=== PATIENT | male | born 1965 | race Caucasian/White ===

== ENCOUNTER 2023-04-24 10:16 | Outpatient (REF) | payer BC, SELFPAY ==
--- NOTE | ~2023-04-24 | XR_ITS ---
EXAMINATION: XR KNEE, LEFT CLINICAL INFORMATION: Pain in left knee COMPARISON: None available. TECHNIQUE: 3 views of the left knee. FINDINGS: No fracture or joint effusion. Alignment is anatomic. Moderate narrowing of the medial joint compartment with associated marginal osteophytes. Small marginal osteophytes involving the patellofemoral joint. No abnormal soft tissue calcification. XR/XR knee LT 3V IMPRESSION: Moderate osteoarthritis involving the medial joint compartment.
== END 2023-04-24 10:17 | disposition home or self-care (01) ==
LOC: HO.HOSX 10:16
PROVIDERS: Visit Provider Orthopaedic Surgery
DX: M17.12 Unilateral primary osteoarthritis, left knee (principal)
CPT/HCPCS: 73562

== ENCOUNTER 2023-04-24 10:44 | Outpatient (AMB) | payer BC, SELFPAY ==
--- NOTE | 2023-04-24 10:51 | A.OFFVIS_ITS ---
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 States pain started about 5 yrs ago and has worsen since. Pain is located mainly by his medial aspect. Describes pain as burning pain in knee. States knee gives out when walking but is not often. Patient wears a knee brace for support. Patient reports he doesn't have a PCP at the moment. The patient has had multiple cortisone injections in the past. The most recent injection gave him minimal relief. He has also done physical therapy for 12 weeks over the last 6 months which aggravated his pain. He has tried Tylenol and anti-inflammatory medicines which gave him minimal relief. He would like to hold off on surgery for as long as possible. Allergies No Known Allergies Allergy (Verified 04/24/23 11:06) Medication List - Last Reconciled 04/24/23 by Erich Cuba MD No Known Home Meds [facility] Social History (Updated 04/24/23 @ 11:[address] 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 Physical Exam Vital Signs: BMI result Body Mass Index 33.4 Const Other: Well-nourished well-developed very friendly male awake alert and oriented x3 in no acute distress Extrem Other: Bilateral lower extremity examination shows good capillary refill, no skin lesions noted, normal sensation light touch Left knee examination shows a minimal effusion, palpable crepitus with range of motion, pain with range of motion, range of motion from -3 degrees to 115 degrees, no instability Results Reviewed Results Reviewed: X-rays of the patient's left knee taken today show moderate joint space narrowing most significant in the medial compartment, subchondral sclerosis, no acute bony abnormalities Assessment & Plan Assessment & Plan (1) Arthritis of left knee: Code(s): M17.12 - Unilateral primary osteoarthritis, left knee Plan: Mr. Powell presents with left knee pain due to degenerative joint disease. I had a lengthy discussion with the patient regarding the treatment options. He wishes to hold off on surgery for as long as possible. I agree with this plan. The patient has not gotten good relief from cortisone injections in the past. Thus, I will see whether not his insurance company will cover a viscosupplementation injection. I will see him back once the injection is available. If he fails continued non operative treatments will further discuss the risks and benefits of surgery. The patient will contact me prior to his follow-up appointment should his symptoms worsen in any way. I spent 22 minutes in reviewing the patient's records and imaging studies, seeing the patient and documenting in the medical record. Orders: Orders XR knee LT 3V Today M25.562 - Pain in left knee Coding Level of Care Code New Pt Level 2 (61532) Diagnoses Arthritis of left knee M17.12
[2023-04-24 11:04] VITALS: BMI 33.4
== END 2023-04-24 11:23 | disposition home or self-care (01) ==
PROVIDERS: Visit Provider Orthopaedic Surgery
DX: M17.12 Unilateral primary osteoarthritis, left knee (principal)
CPT/HCPCS: 99202